=== PATIENT | female | born 1965 | race African-American/Black ===

== ENCOUNTER 2016-05-31 10:54 | Day surgery (SDC) ==
[2016-05-29 14:06] LABS: MANUAL DIFF NEEDED? NO
[2016-05-29 14:09] LABS: BASO% 0.3 % (0.0-0.8); EOS# 0.14 X1000 (0.0-0.7); HEMATOCRIT 41.9 % (37.0-47.0); HEMOGLOBIN 13.9 g/dL (12.0-16.0); LYMPH# 2.42 X1000 (1.2-3.4); LYMPH% 35.2 % (20.5-51.1); MCH 27.5 PG (27-31); MCHC 33.2 g/dL (33-37); MONO# 0.51 X1000 (0.11-0.59); MONO% 7.4 % (1.7-9.3); MPV 10.4 FL (7.4-10.4); NEUT% 55.1 % (42.2-75.2); PLT 213 X1000 (130-400); RBC 5.05 XMIL (4.2-5.4)
[2016-05-29 14:34] LABS: AGAP 15; BUN 9 mg/dL (8-22); CALCIUM 9.2 mg/dL (8.8-10.2); CHLORIDE 93 mmol/L (98-107); COSMO 270; POTASSIUM 3.7 mmol/L (3.5-5.1); SODIUM 133 mmol/L (136-145); TCO2 25 mmol/L (25-35)
--- NOTE | 2016-05-29 16:14 | EKG Report ---
Test Performed on : 05/29/2016 1:57:51 PM Test Reason : PAT Blood Pressure : / mmHG Vent. Rate : 084 BPM Atrial Rate : 084 BPM P-R Int : 158 ms QRS Dur : 092 ms QT Int : 394 ms P-R-T Axes : 063 031 033 degrees QTc Int : 465 ms Normal sinus rhythm. Right atrial enlargement Borderline ECG When compared with ECG of 07-DEC-2015 14:19, Nonspecific T wave abnormality, improved in Inferior leads Nonspecific T wave abnormality no longer evident in Anterolateral leads Confirmed by Ernesto Jones MD ([id number]) on 05/31/2016 9:10:06 PM
[2016-05-31] MEDS ORDERED: REGLAN ONE (11:40)
[2016-05-31] MEDS ORDERED: PEPCID ONE (11:40)
[2016-05-31] MEDS ORDERED: KEFZOL 2 GM/D5W 50 ML ONE (11:41)
[2016-05-31] MEDS ORDERED: LR 1,000 ML ONE ×2 (11:41→16:36)
[2016-05-31] MEDS ORDERED: VALIUM ONE (11:41)
[2016-05-31] MEDS: DILAUDID ONE ×4 (16:10→17:00)
[2016-05-31] MEDS ORDERED: ZOFRAN IV PRN (16:45)
[2016-05-31] MEDS ORDERED: FLEXERIL PO PRN (16:45)
[2016-05-31] MEDS: NORCO-10 PO PRN ×2 (17:44→21:54)
--- NOTE | 2016-05-31 18:12 | OPERATIVE NOTE ---
PROCEDURE DATE: 05/31/2016 PREOPERATIVE DIAGNOSIS: Recurrent chronic breast abscesses. POSTOPERATIVE DIAGNOSIS: Recurrent chronic breast abscess. PROCEDURE PERFORMED: Right total mastectomy. COMPLICATIONS: None. ESTIMATED BLOOD LOSS: 50 mL. DRAINS: Gildardo. ANESTHESIA: General. OPERATIVE INDICATION: This is a 51-year-old female who has had recurrent bilateral breast abscesses for greater than 2 years. She has required multiple surgical interventions, including multiple general anesthesia, numerable counts of IV antibiotics and has failed all these therapies. She recently underwent left-sided mastectomy for treatment of this disease and would like to proceed with right total mastectomy. OPERATIVE NOTE: Risks, benefits, alternatives discussed with the patient, she consented to the procedure. She was seen in the preoperative area. Surgery to be performed was confirmed. The surgical site was marked. She was taken to the operating room, placed in supine position. General anesthesia was induced without complication. Preincisional antibiotics were administered. Her right chest was prepped with chlorhexidine solution and draped in the usual fashion. A time- out was performed. We mapped out an elliptical incision, starting medially just lateral to the sternum, progressing laterally around the breast. We made this incision with a 10 blade and using electrocautery we went down through the subcutaneous tissue to the breast tissue. We 1st started with a cephalad flap and we placed penetrating towel clamps on the superior skin flap, elevated this and with gentle downward retraction, we entered the avascular plane between the breasts. She did, however, have very large mammary veins that required multiple ligations with silk suture. We did this over the superior and inferior flap. However, we were able to take the breast at the level of clavicle medially all the way laterally. We then turned our attention to the inferior skin flap. In a similar fashion, took this down to the level of the rectus muscle and then down to the level of the chest wall. We elected to leave the muscle fascia as this was for a nononcologic resection to decrease her likelihood of having a bleeding complication. We did this and removed the breast off the chest wall. We irrigated the wound, obtained hemostasis, and this was confirmed. Placed a DRU drain, brought it out laterally secured with 2-0 nylon suture. Then closed the deep dermis and obliterated the space down to the anterior chest wall fascia, anterior pectoralis fascia with interrupted 2-0 Vicryl sutures. After this, we closed the skin with jerson, applied a Xeroform and fluff dressing with an Kurtis wrap. She tolerated all this well. She was awoken and transferred to PACU in good condition. I spoke with the family. We will plan to admit her tonight.
[2016-05-31] MEDS ORDERED: DIPRIVAN 1% ONE (18:59)
[2016-05-31] MEDS ORDERED: FENTANYL ONE (18:59)
[2016-05-31] MEDS: COLACE PO SCH (20:57)
[2016-05-31] MEDS: MORPHINE IV PRN (20:57)
[2016-05-31] MEDS: LR 1,000 ML IV SCH (21:56)
[2016-05-31] MEDS: PERIDEX MT SCH (22:18)
[2016-06-01] MEDS: MORPHINE IV PRN ×3 (00:06→06:53)
[2016-06-01] MEDS: NORCO-10 PO PRN ×2 (02:11→06:12)
[2016-06-01] MEDS: LR 1,000 ML IV SCH (06:12)
[2016-06-01 08:30] VITALS: BP 170/95
[2016-06-01] MEDS ORDERED: NORVASC PO SCH (09:00)
[2016-06-01] MEDS ORDERED: EFFEXOR PO SCH (09:00)
[2016-06-01] MEDS: COLACE PO SCH (09:15)
[2016-06-01] MEDS: PERIDEX MT SCH (09:16)
[2016-06-01] MEDS ORDERED: DECADRON ONE (09:24)
[2016-06-01] MEDS ORDERED: XYLOCAINE-MPF 2% ONE (09:24)
[2016-06-01] MEDS ORDERED: ZOFRAN ONE (09:24)
[2016-06-01] MEDS ORDERED: LR 1,000 ML ONE (09:24)
[2016-06-01] MEDS ORDERED: ROBINUL ONE (09:24)
--- NOTE | 2016-06-01 18:51 | DISCHARGE SUMMARY ---
ADMISSION DATE: 05/31/2016 DISCHARGE DATE: 06/01/2016 HISTORY OF PRESENT ILLNESS: This is a 51-year-old female with recurrent bilateral breast infections. She underwent a left mastectomy a couple of weeks ago and had active infection in her right breast. As such, we did not perform a right mastectomy at that time. Given her ongoing infections and multiple operations, a course with antibiotics, and persistence of her symptoms, right mastectomy was indicated and requested by the patient. HOSPITAL COURSE: She was seen in the preoperative area and cleared for above procedure. For details, please see dictated operative note. Postoperatively she did fine. She was admitted to the floor for drain care, pain control. This was well controlled. On the day of her discharge, she was afebrile, no tachycardia, drains were thin, and the wound was flat with no evidence of hematoma. She was felt safe for discharge home at this time. Her preoperative diagnosis was recurrent bilateral breast abscess. Postoperative was same. Procedure performed was right total mastectomy. DISPOSITION: Home to self care. DISCHARGE INSTRUCTIONS: She was given detailed drain care instructions. She knows as she is familiar with this as she had them before. She will call my office when the output is less than 30 mL and we will remove the drain. She also knows what to look for as far as hematoma or wound infection. I gave her a prescription for Percocet and Colace. She can continue taking her other home medicines. DISCHARGE CONDITION: Good. ACTIVITY: Avoid heavy lifting until her followup appointment.
== END 2016-06-01 09:48 | disposition home or self-care (01) ==
LOC: OPS 10:54 → UNDOADMOB 16:22 → 4N 16:22 → OPS 06-01 09:48 → UNDODISOB 06-01 09:48
PROVIDERS: ATTEND Surgery
DX: N61.1 Abscess of the breast and nipple (principal); F17.210 Nicotine dependence, cigarettes, uncomplicated
CPT/HCPCS: 80048; 85025; 88307; 93005; 93010; 94799; J0690; J1100; J1170; J2270; J2405; J3010; J7120

== ENCOUNTER 2016-09-19 16:10 | Inpatient (IN) ==
[2016-09-19 16:33] LABS: URINE CULTURE PL NEEDED? NO
--- NOTE | 2016-09-19 17:02 | Diag Imaging Result Doc PS360 ---
EXAM: FLAT/UPRIGHT ABD/1 VIEW CHEST HISTORY: abd pain TECHNIQUE: Flat and upright abdomen with chest three views COMMENT: The bowel gas pattern is unremarkable. There is no evidence organomegaly or mass. There are vascular calcifications and phleboliths. There is degenerative facet disease at L4-5 and L5-S1. CHEST: The appearance of the chest has not changed significantly since 08/01/2016. IMPRESSION: No evidence of acute disease. Electronically signed by Kiran Ortega 09/19/2016 5:00 PM
[2016-09-19 17:04] LABS: BILIRUBIN URINE NEGATIVE (NEGATIVE); BLOOD URINE 1+ (NEGATIVE); CLARITY CLEAR (CLEAR); COLOR YELLOW; GLUCOSE URINE NEGATIVE (NEGATIVE); LEUKOCYTES URINE NEGATIVE (NEGATIVE); NITRITE URINE NEGATIVE (NEGATIVE); PH URINE 6.5; PROTEIN URINE NEGATIVE (NEGATIVE); UROBILINOGEN URINE NORMAL
[2016-09-19 17:29] LABS: URINE CAST NONE SEEN /LPF; URINE CRYSTAL NONE SEEN /HPF; URINE EPITHELIAL CELLS >10 /HPF (<10); URINE RBC <10 /HPF (<10); URINE SOURCE CLEAN CATCH; URINE WBC <10 /HPF (<10)
[2016-09-19 18:03] LABS: MANUAL DIFF NEEDED? NO
[2016-09-19 18:12] LABS: BASO% 0.3 % (0.0-0.8); EOS# 0.18 X1000 (0.0-0.7); EOS% 2.3 % (0.0-10.0); HEMATOCRIT 42.9 % (37.0-47.0); HEMOGLOBIN 14.5 g/dL (12.0-16.0); IMM GRAN# 0.01 X1000 (0.0-0.04); IMM GRAN% 0.1 % (0.0-0.5); LYMPH# 2.67 X1000 (1.2-3.4); LYMPH% 34.1 % (20.5-51.1); MCH 29.4 PG (27-31); MCHC 33.8 g/dL (33-37); MONO# 0.54 X1000 (0.11-0.59); MONO% 6.9 % (1.7-9.3); MPV 10.9 FL (7.4-10.4); NEUT% 56.3 % (42.2-75.2); PLT 193 X1000 (130-400); RBC 4.93 XMIL (4.2-5.4)
[2016-09-19] MEDS ORDERED: NS 1,000 ML IV PRN (18:18)
[2016-09-19] MEDS ORDERED: ZOFRAN IV ONE (18:19)
[2016-09-19] MEDS ORDERED: DEMEROL IV ONE (18:19)
[2016-09-19 18:43] LABS: AGAP 13; ALBUMIN 3.9 g/dL (3.5-5.0); ALKALINE PHOSPHATASE 119 U/L (32-104); AMYLASE 108 U/L (20-200); BUN 6 mg/dL (8-22); CALCIUM 9.1 mg/dL (8.8-10.2); CHLORIDE 96 mmol/L (98-107); COSMO 274; GOT 38 U/L (10-30); GPT 31 U/L (10-36); LIPASE 344 U/L (13-60); POTASSIUM 3.7 mmol/L (3.5-5.1); SODIUM 135 mmol/L (136-145); TCO2 26 mmol/L (25-35); TOTAL PROTEIN 7.3 g/dL (6.3-8.3)
[2016-09-19 18:57] LABS: HEMOGLOBIN A1C 6.8 % (4.8-6.0)
--- NOTE | 2016-09-19 19:58 | Diag Imaging Result Doc PS360 ---
EXAM: ABDOMEN W/CONTRAST HISTORY: RUQ ABD PAIN TECHNIQUE: CT of the abdomen and pelvis with intravenous and oral contrast COMMENT: There is no evidence of acute disease in the visualized portion of the chest. The liver is hypodense consistent with fatty change and there are granulomata in the liver and spleen. The surface of the liver is somewhat lobulated suggesting the possibility of cirrhosis. There is no evidence of cholelithiasis. There is a phrygian cap in the gallbladder. There is a large cyst arising from the upper pole of the right kidney measuring in excess of 9.3 cm. The adrenal glands and spleen are not enlarged. There is minimal edema around and within the head of the pancreas. There is an 18 mm periportal node. Otherwise there is no evidence of significant adenopathy. There is no evidence of bowel obstruction. The appendix is normal in appearance. IMPRESSION: Mild pancreatitis. Hepatic steatosis and possible cirrhosis. Electronically signed by Kiran Ortega 09/19/2016 7:56 PM
[2016-09-19] MEDS ORDERED: ZOFRAN IV PRN (20:11)
[2016-09-19] MEDS ORDERED: NS 1,000 ML IV ONE (20:11)
--- NOTE | 2016-09-19 20:16 | PROVIDER DOCUMENTATION ---
This chart was entered by Jacque Nova Scribe, acting as scribe for Immanuel Higuera MD. HPI-Abdominal Pain/GI Problem - General Chief Complaint: Abdominal Pain Stated Complaint: ABD/EPIGASTRIC PAIN Time Seen by Provider: 09/19/16 18:09 Source: patient Allergies/Adverse Reactions: Patient Allergies Allergy/AdvReac Type Severity Reaction Status Date / Time No Known Allergies Allergy Verified 05/29/16 13:34 Home Medications: Home Medication List Medication Instructions Recorded Confirmed Last Taken Type Amlodipine [Norvasc] 10 mg PO DAILY 05/11/13 05/31/16 05/30/16 08:00 History Cyclobenzaprine [Flexeril] 10 mg PO PRN PRN 05/06/15 05/29/16 04/18/16 10:00 History Tizanidine HCl [Zanaflex] 2 mg PO DAILY 12/07/15 05/31/16 05/30/16 History Docusate Sodium [Colace] 100 mg PO BID #60 capsule 01/17/16 05/31/16 05/30/16 Rx Oxycodone HCl/Acetaminophen 1 each PO Q6H PRN PRN #30 tablet 01/17/16 05/31/16 05/30/16 Rx [Percocet 10-325 mg Tablet] Hydrochlorothiazide 25 mg PO DAILY 04/20/16 05/31/16 05/30/16 08:00 History Venlafaxine [Effexor] 50 mg PO DAILY 05/31/16 05/31/16 05/30/16 08:00 History Azithromycin [Zithromax Z-Porfirio] 250 mg PO DIRECTED #1 pkg 08/01/16 Unknown Rx Benzonatate [Tessalon Perle] 200 mg PO TID #30 capsule 08/01/16 Unknown Rx Methylprednisolone [Medrol Dosepak] 4 mg PO DIRECTED #1 package 08/01/16 Unknown Rx - History of Present Illness-ABD Nature of Presenting Problems: 51 Y/O F presents to ED with ABD pain. p states 2 weeks of ABD pain at first intermittent but now has become constant. Pt states that she took Miralax believing it was gas but states that it helped a little, but ABD pain has returned. Pt states that she has had Thick stool. Eating worsens ABD pain. Pt states that she took 6 Zantax throughout 3 days. Pt states its a burning feeling that occurs when eating, and when the pain comes on it is a frank pain. Abdominal Pain Onset Location: reports: epigastric Pain Radiation: reports: RUQ, flank Quality of Pain: reports: aching Severity in ED: reports: moderate, severe Onset/Duration: reports: other (2 weeks) Timing: reports: still present Associated Symptoms: reports: diarrhea. denies: fatigue, fever/chills, shortness of breath, syncope, vomiting Last BM: this morning Review of Systems - Adult - REVIEW OF SYSTEMS - ADULT Constitutional: denies: chills, fever Eyes: reports: no symptoms reported Ears, Nose, Mouth & Throat: reports: no symptoms reported Cardiovascular: reports: no symptoms reported Respiratory: reports: no symptoms reported Gastrointestinal: reports: abdominal pain, diarrhea. denies: nausea, vomiting Genitourinary: reports: no symptoms reported Musculoskeletal: reports: no symptoms reported Integumentary: reports: no symptoms reported Neurological: reports: no symptoms reported Psychiatric: reports: no symptoms reported Endocrine: reports: no symptoms reported Hematologic/Lymphatic: reports: no symptoms reported Allergic/Immunologic: reports: no symptoms reported All Other Systems: Reviewed and Negative Past History - Adult - PAST MEDICAL HISTORY-ADULT Review of Records: reports: Old Records Reviewed, Nursing Assessment Review, Medications Reviewed, Social history reviewed & non-contributory. Major Childhood Illnesses: reports: denies history Cardiovascular: reports: HTN Respiratory: reports: denies history Gastrointestinal: reports: denies history Obstetrical/Gynecological: reports: denies history Genitourinary: reports: denies history Musculoskeletal: reports: denies history Neurological: reports: denies history Psychiatric: reports: bipolar Endocrine/Immune: reports: denies history Other Conditions: reports: denies history - PRIOR SURGERIES/PROCEDURES Surgical/Procedure History: reports: back/neck (neck sx) - IMMUNIZATION STATUS Childhood Immunizations: See Nurse Assessment Flu Vaccine: See Nurse Assessment - FAMILY HISTORY Family History: reviewed, not pertinent Physical Exam-General - CONSTITUTIONAL General Appearance: alert, no apparent distress, obese - EYES Eyes: PERRL/EOMI, pink conjunctivae - HEAD, EARS, NOSE, MOUTH & THROAT HENMT: normocephalic/atraumatic, moist mucous membranes, normal ENT inspection, TMs normal, pharynx normal - NECK Neck: full range of motion, supple, normal inspection - RESPIRATORY Respiratory: lungs clear, normal breath sounds - CARDIOVASCULAR Cardiovascular: normal peripheral pulses, regular rate, rhythm - GASTROINTESTINAL (ABDOMEN) Abdominal Exam: distended, tenderness (epigastric and RUQ) - LYMPHATIC Lymphatic: no adenopathy - MUSCULOSKELETAL Back Exam: normal inspection Extremity: normal range of motion, non-tender - SKIN Integumentary: normal color, normal turgor - NEUROLOGIC Neurologic: grossly normal - PSYCHIATRIC Psych/Mental Status: normal mood/affect, normal thought content, normal thought process, oriented x 3 Progress - PLAN OF CARE/RESULTS Progress/Plan/Lab Results: Vital Signs - 8 hr 09/19/16 16:19 Temperature 98 F Pulse Rate 86 Respiratory Rate 18 Blood Pressure 152/110 O2 Sat by Pulse Oximetry 97 Laboratory Results - last 24 hr 09/19/16 16:20 Urine Source CLEAN CATCH Urine Color YELLOW Urine Clarity CLEAR Urine pH 6.5 Ur Specific [place] 1.000 Urine Protein NEGATIVE Urine Ketones NEGATIVE Urine Blood 1+ A Urine Nitrite NEGATIVE Urine Bilirubin NEGATIVE Urine Urobilinogen NORMAL Urine Microscopic RBC <10 Urine WBC NEGATIVE Urine Microscopic WBC <10 Ur Epithelial Cells >10 A Urine Crystals NONE SEEN Urine Bacteria NEGATIVE Urine Casts NONE SEEN Urine Yeast NONE SEEN Urine Glucose NEGATIVE Orders Category Date Time Status FLAT/UPRIGHT ABD/1 VIEW CHEST [RAD] Stat Exams 09/19/16 16:23 Completed AMYLASE [CHEM] Stat Lab 09/19/16 17:52 Received CBC WITH DIFF [HEME] Stat Lab 09/19/16 17:52 Results COMPREHENSIVE METABOLIC PANEL [CHEM] Stat Lab 09/19/16 17:52 Received LIPASE [CHEM] Stat Lab 09/19/16 17:[address] W/POSS RFLX CULT [URINALYSIS] Stat Lab 09/19/16 16:20 Completed Result Diagrams: 09/19/16 17:52 09/19/16 17:52 - XRAY 1 XRAY Study: Abdomen Impression: Normal XRAY Interpretation: bowel gas pattern unremarkable 2 XRAY Study: Chest Impression: Normal Comparison with other Films: no changes (since 08/01/16) XRAY Interpretation: NAD - CT/MRI 1 CT Study: Abdomen Impression: Abnormal CT Results: Mild pancreatitits. Hepatic steatosis and possible cirrhosis - CONSULTS/PCP/HOSPITALIST Notification #1 *Consult/PCP/Hospitalist*: Time Discussed: 20:08 Reason/Comments: Admit Consult Disposition: Admit (Admit Accepted) Departure - Departure Date of Disposition Decision: 09/19/16 Time of Disposition Decision: 20:14 DIAGNOSIS: Steatosis of liver, Obesity (BMI 30.0-34.9) Pancreatitis Qualifiers: Chronicity: acute Pancreatitis type: idiopathic Acute pancreatitis complication : no infection or necrosis Qualified Code(s): K85.00 - Idiopathic acute pancreatitis without necrosis or infection Disposition: ADMITTED INPATIENT 09 Certified Medical Emergency: Emergent Condition: Fair Referrals and Follow-Ups: None,PCP [Primary Care Provider] - - Critical Care Note This patient required my direct & personal management of CC.: No This chart was documented by the indicated scribe, (Jacque Nova Scribe) and accurately reflects the services I performed and decisions made by me, Immanuel Higuera MD, as attested by the provider's signature.
[2016-09-19] MEDS ORDERED: MORPHINE IV ONE (22:12)
[2016-09-19] MEDS ORDERED: SODIUM CHLORIDE 0.9% INJ ONE (22:12)
[2016-09-19] MEDS ORDERED: PHENERGAN IV ONE (22:12)
[2016-09-20] MEDS: MORPHINE IV PRN ×7 (05:32→22:50)
[2016-09-20 06:31] LABS: AGAP 12; ALBUMIN 3.7 g/dL (3.5-5.0); ALKALINE PHOSPHATASE 112 U/L (32-104); BUN 8 mg/dL (8-22); CALCIUM 8.9 mg/dL (8.8-10.2); CHLORIDE 98 mmol/L (98-107); COSMO 273; GOT 30 U/L (10-30); GPT 28 U/L (10-36); POTASSIUM 3.6 mmol/L (3.5-5.1); SODIUM 136 mmol/L (136-145); TCO2 26 mmol/L (25-35); TOTAL PROTEIN 7.6 g/dL (6.3-8.3)
--- NOTE | 2016-09-20 13:10 | HISTORY AND PHYSICAL ---
CHIEF COMPLAINT: Right upper quadrant epigastric pain. HISTORY OF PRESENT ILLNESS: This is a 51-year-old female with a prior history of hypertension, bipolar disorder, who presented to the emergency room complaining of epigastric pain and nausea. This has been present for 2 weeks. She does describe this as a burning-type pain in the epigastric area that she feels like is frank or having spasms at times. Food exacerbates and it spontaneously relieves. She denied any vomiting, diarrhea, constipation, black or bloody vomitus, black or bloody stool. She was found to have a lipase of 344. CT of the abdomen revealed mild pancreatitis with hepatic steatosis and possible cirrhosis. She was given IV fluids as well as Phenergan and Zofran for nausea and admitted for further evaluation and treatment. PAST MEDICAL HISTORY: Hypertension, bipolar disorder. Tobacco. Chronic pain currently at a Pain Clinic. PAST SURGICAL HISTORY: Bilateral mastectomy for recurrent infections. SOCIAL HISTORY: She smokes daily and she drinks alcohol daily, 4 beers at least. ALLERGIES: No known drug allergies. HOME MEDICATIONS: Restoril 15 mg at bedtime, Klonopin 0.5 b.i.d., hydrochlorothiazide 25 mg daily. Norvasc 10 mg daily. Oxycodone 10 t.i.d. p.r.n. and Effexor XR 150 at bedtime. REVIEW OF SYSTEMS: A 14-point review of systems is discussed with the patient with pertinent positives stated in the HPI. She denied chest pain, palpitations, dizziness, syncope, cough, fever, chills, PND, orthopnea, vomiting, diarrhea, constipation, black or bloody vomitus black or bloody stools, hematuria, dysuria, frequency, urgency. PHYSICAL EXAMINATION: GENERAL: This is a 51-year-old female who is sitting in the bed, in no distress. VITAL SIGNS: Blood pressure is 123/73 with a heart rate of 76, respirations are 16, temperature is 98.4 with room air saturations of 95%. HEENT: Head is normocephalic, atraumatic. Pupils equal, round, react to light. EOMs are intact. Sclerae are anicteric. Mucous membranes are moist. NECK: Supple with trachea midline. CARDIOVASCULAR: Regular rate and rhythm. S1, S2 appreciated. PULMONARY: Breath sounds are clear. No increased work of breathing noted. Chest does rise and fall symmetrically with respiration. GASTROINTESTINAL: Abdomen is soft. Tender in the epigastric region. Nondistended with bowel sounds in all 4 quadrants. BACK: No CVAT. No spine tenderness. MUSCULOSKELETAL: Good range of motion of joints. NEUROLOGIC: She is alert and oriented x3 with cranial nerves 2-12 grossly intact. EXTREMITIES: No clubbing, cyanosis, or edema. Calves are nontender. Pulses are palpable x4. DIAGNOSTICS: WBC is 7.84 with a hemoglobin 14.5, hematocrit 42.9 and platelets of 193. Sodium is 136, potassium 3.6, BUN 8, creatinine 0.9. Glucose ranging 116-140. Hemoglobin A1c is 6.8, with a lipase of 344. CT scan of the abdomen and pelvis reveals mild pancreatitis. Cirrhosis and hepatic steatosis. Abdominal x-ray reveals no acute disease. Chest x-ray, with no change since 08/01/2016. ASSESSMENT AND PLAN: 1. Pancreatitis. Patient will remain n.p.o. Will give IV hydration with pain and nausea control. We will trend her lipase. 2. Steatosis of liver. Aware. 3. Obesity. 4. Hypertension. We will identify her home medications and continue as appropriate. 5. Bipolar disorder. We will continue her home medications and reorder as appropriate. 6. Tobacco abuse. We will add a nicotine patch if she needs it. 7. Alcohol use daily. We will start Librium 25 mg b.i.d., monitor for withdrawal and delirium tremens. 8. We will continue to trend labs. Further treatments pending hospital course. Dictated by CYNTHIA South for Fabrice Torres MD cc: CYNTHIA South MD
[2016-09-20] MEDS: LIBRIUM PO SCH (13:50)
[2016-09-20] MEDS: RESTORIL PO SCH (21:36)
[2016-09-20] MEDS: KLONOPIN PO SCH (21:36)
[2016-09-20] MEDS: EFFEXOR XR PO SCH (21:36)
[2016-09-21] MEDS: LIBRIUM PO SCH ×3 (00:11→23:44)
[2016-09-21] MEDS: MORPHINE IV PRN ×3 (01:13→05:37)
[2016-09-21 05:49] LABS: MCH 28.7 PG (27-31); MCHC 32.6 g/dL (33-37); MCV 88.1 FL (81-99); MPV 11.6 FL (7.4-10.4); RBC 4.88 XMIL (4.2-5.4)
[2016-09-21 06:21] LABS: AGAP 11; ALBUMIN 3.8 g/dL (3.5-5.0); ALKALINE PHOSPHATASE 111 U/L (32-104); BUN 9 mg/dL (8-22); CALCIUM 8.7 mg/dL (8.8-10.2); CHLORIDE 96 mmol/L (98-107); COSMO 268; GOT 33 U/L (10-30); GPT 25 U/L (10-36); LIPASE 151 U/L (13-60); POTASSIUM 3.4 mmol/L (3.5-5.1); SODIUM 134 mmol/L (136-145); TCO2 26 mmol/L (25-35); TOTAL PROTEIN 7.5 g/dL (6.3-8.3)
[2016-09-21] MEDS ORDERED: NORCO-10 PO PRN (06:39)
[2016-09-21] MEDS: HYDROCHLOROTHIAZIDE PO SCH (09:33)
[2016-09-21] MEDS: COLACE PO SCH ×2 (09:33→20:37)
[2016-09-21] MEDS: NORVASC PO SCH (09:33)
[2016-09-21] MEDS: ZOSYN 3.375 GM/NS 3.375 GM/50 ML IVPB IV SCH ×3 (09:33→20:38)
[2016-09-21] MEDS: KLONOPIN PO SCH ×2 (09:33→20:37)
[2016-09-21] MEDS: PERCOCET-10 PO PRN ×2 (13:13→20:38)
--- NOTE | 2016-09-21 14:37 | PROGRESS NOTE ---
DATE: 09/21/2016 SUBJECTIVE: The patient is feeling better having no nausea. She did tolerate a clear liquid breakfast without abdominal pain or nausea. She denies any fever or chills. OBJECTIVE: Vital Signs: Blood pressure is 123/76, heart rate of 75, respirations are 16, temperature is 98 degrees with oxygen saturations of 93%-98% on room air. Cardiovascular: Regular rate and rhythm. S1, S2 appreciated. Pulmonary: Breath sounds are clear. No increased work of breathing noted. Gastrointestinal: Soft. Tender in the epigastric area although it is less than yesterday with bowel sounds in all 4 quadrants. Musculoskeletal: Good range of motion of joints. Neurologic: She is alert and oriented x3. LABORATORY DATA: WBC is 6.39. Sodium is 134, potassium 3.4. BUN is 9, creatinine 0.8. Lipase is down to 151. ASSESSMENT AND PLAN: 1. Pancreatitis. We will continue with IV hydration. We will trend amylase and lipase and advance diet. 2. Steatosis of liver, aware. 3. Obesity, aware. 4. Hypertension. Blood pressures are running in the 104-120s/70 range. We will continue with hydrochlorothiazide as well as Norvasc. 5. Bipolar disorder. We will continue her home medications. 6. Daily alcohol use. We will continue Librium 25 mg b.i.d. So far, she has had no signs or symptoms of withdrawal or delirium tremens. 7. Tobacco abuse, aware. Dictated by CYNTHIA South for Fabrice Torres MD cc: CYNTHIA South MD
[2016-09-21] MEDS: RESTORIL PO SCH (20:37)
[2016-09-21] MEDS: EFFEXOR XR PO SCH (20:37)
[2016-09-21] MEDS ORDERED: RESTORIL PO SCH (21:00)
[2016-09-22] MEDS: ZOSYN 3.375 GM/NS 3.375 GM/50 ML IVPB IV SCH ×3 (03:17→15:07)
[2016-09-22 06:18] VITALS: BP 152/93
[2016-09-22 06:46] LABS: ALBUMIN 3.8 g/dL (3.5-5.0); POTASSIUM 4.1 mmol/L (3.5-5.1); TOTAL BILIRUBIN 0.3 mg/dL (0.20-1.00); TOTAL PROTEIN 7.6 g/dL (6.3-8.3)
[2016-09-22] MEDS: HYDROCHLOROTHIAZIDE PO SCH (09:19)
[2016-09-22] MEDS: COLACE PO SCH (09:19)
[2016-09-22] MEDS: KLONOPIN PO SCH (09:19)
[2016-09-22] MEDS: NORVASC PO SCH (09:19)
[2016-09-22] MEDS: PERCOCET-10 PO PRN ×2 (09:23→16:05)
[2016-09-22] MEDS: LIBRIUM PO SCH (12:00)
--- NOTE | 2016-09-22 19:30 | DISCHARGE SUMMARY ---
ADMISSION DATE: 09/19/2016 DISCHARGE DATE: 09/22/2016 DIAGNOSES: 1. Pancreatitis. 2. Steatosis of liver. Aware. 3. Obesity. 4. Hypertension. 5. Bipolar disorder. 6. Daily alcohol use. 7. Tobacco abuse. DIAGNOSTICS: 09/19/2016: Abdominal x-ray revealed no evidence of acute disease. 09/19/2016: CT of the abdomen with mild pancreatitis, hepatic steatosis and possible cirrhosis. HOSPITAL COURSE: Ms. Bah presented to the emergency room complaining of abdominal pain, right upper quadrant epigastric pain. She denied any vomiting, diarrhea or constipation. She stated this had been going on for 2 weeks. It had been waxing and waning. She was found to have pancreatitis with CT revealing mild pancreatitis, amylase of 108 and lipase of 344. She remained n.p.o. with IV hydration and nausea medication. As lipase decreased and her nausea subsided, we did start her on clear liquids and advance her diet. She tolerated a soft diet at lunch today with no vomiting with very little abdominal pain. No nausea. She stated the pain was just a slight cramping. She remained afebrile. We did trend her electrolytes and supplemented her potassium. She did have an A1c of 6.8 with blood sugars that ranged 107 to 150s. Thankfully the symptoms did subside, she has improved and she does feel that she is ready to go home. PHYSICAL EXAMINATION: Cardiovascular: Regular rate and rhythm. S1 and S2 appreciated. Pulmonary: Breath sounds are clear with no increased work of breathing noted . Gastrointestinal: Abdomen is soft, nontender, nondistended with bowel sounds in all 4 quadrants. Extremities: No clubbing, cyanosis, or edema. Calves are nontender. Pulses are palpable x4. DISCHARGE MEDICATIONS: 1. Restoril 15 mg at bedtime. 2. Klonopin 0.5 p.o. b.i.d. 3. Hydrochlorothiazide 25 daily. 4. Colace 100 b.i.d. 5. Norvasc 10 daily. 6. Percocet 10/325, 1 t.i.d. p.r.n. 7. Effexor 150 mg at bedtime. FOLLOWUP: She needs to follow up with her primary care physician in 1-2 weeks. If she does not have one, she will be given the numbers to the Physician Referral Line as well as the [facility]. She has also been instructed to return to the emergency room for temperature greater than 101.5; return of pain, nausea, vomiting, diarrhea, constipation or any questions or concerns that she may have. She is being discharged home in stable condition with family members. TIME SPENT: This is a greater than 30 minute discharge. Dictated by CYNTHIA South for Fabrice Torres MD cc: CYNTHIA South MD
== END 2016-09-22 17:36 | disposition home or self-care (01) ==
LOC: P.ED 16:10 → P.MEDSURG 21:15
PROVIDERS: ATTEND Family Medicine

== ENCOUNTER 2016-10-06 02:04 | Inpatient (IN) ==
[2016-10-06] MEDS ORDERED: ZOFRAN IV ONE (02:19)
[2016-10-06] MEDS ORDERED: NS 1,000 ML IV ONE ×3 (02:19→03:04)
[2016-10-06] MEDS ORDERED: OFIRMEV 1000 MG/ISOTONIC SOLN 1,000 MG/100 ML BOTTLE IV ONE (02:20)
[2016-10-06] MEDS ORDERED: DILAUDID IV ONE (02:26)
[2016-10-06 02:36] LABS: MANUAL DIFF NEEDED? NO
[2016-10-06 02:38] LABS: BASO% 0.2 % (0.0-0.8); EOS# 0.17 X1000 (0.0-0.7); EOS% 1.8 % (0.0-10.0); HEMATOCRIT 41.7 % (37.0-47.0); HEMOGLOBIN 14.5 g/dL (12.0-16.0); IMM GRAN# 0.01 X1000 (0.0-0.04); IMM GRAN% 0.1 % (0.0-0.5); LYMPH# 3.19 X1000 (1.2-3.4); LYMPH% 33.8 % (20.5-51.1); MCH 29.4 PG (27-31); MCHC 34.8 g/dL (33-37); MCV 84.4 FL (81-99); MONO# 0.78 X1000 (0.11-0.59); MONO% 8.3 % (1.7-9.3); MPV 11.3 FL (7.4-10.4); NEUT% 55.8 % (42.2-75.2); PLT 225 X1000 (130-400); RBC 4.94 XMIL (4.2-5.4)
[2016-10-06 02:58] LABS: AGAP 12; ALKALINE PHOSPHATASE 94 U/L (32-104); BUN 9 mg/dL (8-22); CALCIUM 10.3 mg/dL (8.8-10.2); CHLORIDE 95 mmol/L (98-107); COSMO 267; GOT 22 U/L (10-30); GPT 17 U/L (10-36); LIPASE 278 U/L (13-60); POTASSIUM 3.3 mmol/L (3.5-5.1); SODIUM 133 mmol/L (136-145); TCO2 25 mmol/L (25-35); TOTAL PROTEIN 8.1 g/dL (6.3-8.3)
[2016-10-06] MEDS ORDERED: TORADOL IV ONE (03:01)
[2016-10-06] MEDS: DILAUDID IV ONE ×2 (03:01→03:49)
[2016-10-06] MEDS ORDERED: ZOFRAN IV PRN (03:04)
--- NOTE | 2016-10-06 03:07 | PROVIDER DOCUMENTATION ---
This chart was entered by Emily Farnsworth Scribe, acting as scribe for Fadi Hernandez MD. HPI-Abdominal Pain/GI Problem - General Chief Complaint: Abdominal Pain Stated Complaint: ABD PAIN Time Seen by Provider: 10/06/16 02:17 Source: patient Allergies/Adverse Reactions: Patient Allergies Allergy/AdvReac Type Severity Reaction Status Date / Time No Known Allergies Allergy Verified 05/29/16 13:34 Home Medications: Home Medication List Medication Instructions Recorded Confirmed Last Taken Type Amlodipine [Norvasc] 10 mg PO DAILY 05/11/13 09/20/16 09/18/16 History Docusate Sodium [Colace] 100 mg PO BID #60 capsule 01/17/16 09/20/16 09/18/16 Rx Hydrochlorothiazide 25 mg PO DAILY 04/20/16 09/20/16 09/18/16 History Clonazepam 0.5 mg PO BID 09/20/16 09/20/16 09/18/16 History Oxycodone HCl/Acetaminophen 1 each PO TID PRN PRN 09/20/16 09/20/16 09/18/16 History [Percocet 10-325 mg Tablet] Temazepam 15 mg PO QHS 09/20/16 09/20/16 09/18/16 History Venlafaxine HCl [Effexor Xr] 150 mg PO QHS 09/20/16 09/20/16 09/18/16 History - History of Present Illness-ABD Nature of Presenting Problems: 51 year old F presents to the ED with a cc of RUQ and epigastric ABD pain with an onset of 3 days ago. Pt was just released 1 week ago from the hospital for the same. PT states that she had some vomiting 2 nights ago and diarrhea yesterday. Abdominal Pain Onset Location: reports: RUQ, epigastric Pain Radiation: reports: back Quality of Pain: reports: aching Severity in ED: reports: moderate Onset/Duration: reports: 3 days ago Timing: reports: still present Associated Symptoms: reports: diarrhea, nausea, vomiting Bruising or Bleeding Gums?: No Similar Symptoms Previously?: Yes Recently seen or treated by another doctor?: Yes Review of Systems - Adult - REVIEW OF SYSTEMS - ADULT Constitutional: denies: chills, fever Eyes: reports: no symptoms reported Ears, Nose, Mouth & Throat: reports: no symptoms reported Cardiovascular: reports: no symptoms reported Respiratory: denies: cough, shortness of breath Gastrointestinal: reports: abdominal pain, diarrhea, nausea, vomiting Genitourinary: denies: dysuria, hematuria Musculoskeletal: reports: no symptoms reported Integumentary: reports: no symptoms reported Neurological: reports: no symptoms reported Psychiatric: reports: no symptoms reported Endocrine: reports: no symptoms reported Hematologic/Lymphatic: reports: no symptoms reported Allergic/Immunologic: reports: no symptoms reported All Other Systems: Reviewed and Negative Past History - Adult - PAST MEDICAL HISTORY-ADULT Review of Records: reports: Nursing Assessment Review, Medications Reviewed Major Childhood Illnesses: reports: denies history Cardiovascular: reports: HTN Respiratory: reports: denies history Gastrointestinal: reports: denies history Obstetrical/Gynecological: reports: denies history Genitourinary: reports: denies history Musculoskeletal: reports: denies history Neurological: reports: denies history Psychiatric: reports: bipolar Endocrine/Immune: reports: denies history Other Conditions: reports: denies history - PRIOR SURGERIES/PROCEDURES Surgical/Procedure History: reports: back/neck (neck sx) - IMMUNIZATION STATUS Childhood Immunizations: See Nurse Assessment Flu Vaccine: See Nurse Assessment - FAMILY HISTORY Family History: reviewed, not pertinent - SOCIAL HISTORY Smoking: cigarettes Provider spent 3-5 mins advising pt. on dangers of tobacco.: Discussed manners to quit use, and f/u contacts for add'l counseling. Substance Use: none/never Alcohol Use Frequency: 5-6 times a week Physical Exam-General - PHYSICAL EXAM-ADULT Initial Vital Signs Reviewed: Yes - CONSTITUTIONAL General Appearance: alert, moderate distress - RESPIRATORY Respiratory: chest non-tender, lungs clear, normal breath sounds - CARDIOVASCULAR Cardiovascular: normal peripheral pulses, regular rate, rhythm, no edema - GASTROINTESTINAL (ABDOMEN) Abdominal Exam: soft, tenderness (RUQ, epigastric), Wayne's sign - MUSCULOSKELETAL Back Exam: no CVA tenderness - SKIN Integumentary: normal color, normal turgor, warm/dry - PSYCHIATRIC Psych/Mental Status: normal mood/affect, normal thought content, normal thought process, oriented x 3 Progress - PLAN OF CARE/RESULTS Progress/Plan/Lab Results: Vital Signs - 8 hr 10/06/17 02:07 Temperature 97.8 F Pulse Rate 82 Respiratory Rate 15 Blood Pressure 200/113 O2 Sat by Pulse Oximetry 98 Orders Category Date Time Status Saline Loc DIRECTED Care 10/06/16 02:19 Active NPO Diet 10/06/16 02:19 Active ALCOHOL BLOOD Stat Lab 10/06/16 02:19 Ordered CBC WITH ELECTRONIC DIFF [HEME] Stat Lab 10/06/16 02:19 Ordered COMPREHENSIVE METABOLIC PANEL [CHEM] Stat Lab 10/06/16 02:19 Ordered LIPASE [CHEM] Stat Lab 10/06/16 02:[address] W/POSS RFLX CULT [URINALYSIS] Stat Lab 10/06/16 02:19 Uncollected 0.9% Sodium Chloride Inj [Ns] 1,000 ml Med 10/06/16 02:19 Active IV 999 mls/hr Acetaminophen [Ofirmev 1000 mg/Isotonic Soln] Med 10/06/16 02:20 Active 1,000 mg in 100 ml IV NOW Ondansetron [Zofran] Med 10/06/16 02:19 Discontinued 8 mg IV NOW ONE Result Diagrams: 10/06/16 02:33 10/06/16 02:33 Departure - Departure Date of Disposition Decision: 10/06/16 Time of Disposition Decision: 03:06 DIAGNOSIS: Pancreatitis Qualifiers: Chronicity: acute Pancreatitis type: unspecified pancreatitis type Acute pancreatitis complication: no infection or necrosis Qualified Code(s): K85.90 - Acute pancreatitis without necrosis or infection, unspecified Disposition: ADMITTED INPATIENT 09 Certified Medical Emergency: Emergent Condition: Fair Referrals and Follow-Ups: Alpesh Fitzpatrick [Primary Care Provider] - - Critical Care Note This patient required my direct & personal management of CC.: No This chart was documented by the indicated scribe, (Emily Farnsworth Scribe) and accurately reflects the services I performed and decisions made by me, Fadi Hernandez MD, as attested by the provider's signature.
[2016-10-06 03:14] LABS: BILIRUBIN URINE NEGATIVE (NEGATIVE); BLOOD URINE TRACE (NEGATIVE); CLARITY CLEAR (CLEAR); COLOR YELLOW; GLUCOSE URINE NEGATIVE (NEGATIVE); LEUKOCYTES URINE NEGATIVE (NEGATIVE); NITRITE URINE NEGATIVE (NEGATIVE); PROTEIN URINE NEGATIVE (NEGATIVE); SP GRAVITY URINE 1.005; UROBILINOGEN URINE NORMAL
[2016-10-06 03:22] LABS: URINE CULTURE PL NEEDED? YES; URINE EPITHELIAL CELLS <10 /HPF (<10); URINE SOURCE CLEAN CATCH; URINE WBC <10 /HPF (<10)
[2016-10-06] MEDS: DILAUDID IV SCH ×8 (05:45→18:31)
--- NOTE | 2016-10-06 10:32 | Diag Imaging Result Doc PS360 ---
US GB < RUQ (LIMITED) - 10/06/2016 INDICATION: pancreatitis TECHNIQUE: Hernandez scale, color Doppler, and duplex evaluation of the abdomen was performed. COMPARISON: CT abdomen 09/19/2016. FINDINGS: The liver appears hyperechoic suggesting diffuse fatty liver infiltration. No focal masses are appreciated. The IVC and aorta appear normal. The pancreas is obscured by bowel gas artifact. The gallbladder is free of stones and sludge has a normal caliber wall. The common bile duct measures 6 mm. The portal vein is patent with hepatopetal flow. The right kidney contains a large simple cyst right upper pole measuring 9.6 x 9.5 x 8.3 cm.. There is no hydronephrosis. IMPRESSION: No cholelithiasis. Large right upper pole renal cyst. Electronically signed by Andressa Clemens 10/06/2016 10:30 AM
[2016-10-06] MEDS: ZOSYN 3.375 GM/NS 3.375 GM/50 ML IVPB IV SCH ×2 (12:39→18:31)
--- NOTE | 2016-10-06 15:38 | HISTORY AND PHYSICAL ---
CHIEF COMPLAINT: Right upper quadrant pain. HISTORY OF PRESENT ILLNESS: This is a 51-year-old female who is well known to our service, having been just discharged from the hospital within the last week for the same. She comes in complaining of a burning-type epigastric/right upper quadrant pain. She describes it as frank or having spasms at times. Food exacerbates it and at times it is spontaneously relieved. She denied any vomiting, diarrhea, constipation, black or bloody vomitus, or black or bloody stools. She was found to have a lipase of 278 with abdominal ultrasound revealing no cholelithiasis, a large right upper pole renal cyst. She was given IV fluids as well as Dilaudid and Toradol in the emergency room. She is being admitted for further evaluation and treatment. PAST MEDICAL HISTORY: Hypertension, bipolar disorder, tobacco use, chronic pain, currently in a pain clinic. PAST SURGICAL HISTORY: Bilateral mastectomy for recurrent infections. SOCIAL HISTORY: She smokes daily. She drinks alcohol daily, at least 4 beers. ALLERGIES: No known drug allergies. HOME MEDICATIONS: Hydrochlorothiazide 25 mg daily. Colace 100 b.i.d. Klonopin 0.5 b.i.d. Norvasc 10 daily. Effexor XR 150 at bedtime. Restoril 15 at bedtime. REVIEW OF SYSTEMS: A 14-point review of systems is discussed with the patient, with pertinent positives stated in the HPI. She denied chest pain, palpitations, dizziness, syncope, cough, fever, chills, PND, orthopnea, vomiting, diarrhea, black or bloody vomitus, black or bloody stools. PHYSICAL EXAMINATION: GENERAL: This is a 51-year-old female who is sitting up in the bed, in no distress. VITAL SIGNS: Blood pressure is 151/90 with a heart rate of 75. Respirations are 18. Temperature is 97.9 degrees oral with oxygen saturations 93% to 95%. CARDIOVASCULAR: Regular rate and rhythm. S1 and S2 appreciated. PULMONARY: Breath sounds are clear, with no increased work of breathing noted. GASTROINTESTINAL: Abdomen is soft. She does have some right upper quadrant and epigastric tenderness, with bowel sounds in all 4 quadrants. MUSCULOSKELETAL: Good range of motion of joints. SKIN: Warm and dry. NEUROLOGIC: She is alert and oriented, with cranial nerves 2-12 grossly intact. DIAGNOSTICS: WBC is 9.4 with a hemoglobin of 14.5, hematocrit 41.7, and platelets of 225,000. Sodium is 133, potassium 3.3, BUN 9, creatinine 0.6, with a glucose of 127. Lipase is 278. Blood alcohol is zero. ASSESSMENT AND PLAN: 1. Recurrent pancreatitis. She will remain n.p.o. We will give IV hydration, pain and nausea control, and trend her lipase. 2. Steatosis of the liver. Aware. 3. Obesity. 4. Hypertension. We will identify and continue her medicines, and continue as appropriate. 5. Bipolar disorder. We will continue her medicines. 6. Tobacco use. We will add a nicotine patch. 7. Alcohol use daily. We will start Librium 25 mg b.i.d. and monitor for withdrawal or delirium tremens. Further treatments pending hospital course. Dictated by CYNTHIA South for Fabrice Torres MD cc: CYNTHIA South MD
[2016-10-06] MEDS ORDERED: RESTORIL PO SCH (21:00)
[2016-10-06] MEDS: KLONOPIN PO SCH (21:13)
[2016-10-06] MEDS: DILAUDID IV PRN (21:20)
[2016-10-07] MEDS: ZOSYN 3.375 GM/NS 3.375 GM/50 ML IVPB IV SCH ×5 (00:10→23:59)
[2016-10-07] MEDS: DILAUDID IV PRN ×6 (00:14→21:04)
[2016-10-07 06:20] LABS: HEMATOCRIT 42.9 % (37.0-47.0); MCH 28.6 PG (27-31); MCHC 32.6 g/dL (33-37); MCV 87.6 FL (81-99); MPV 11.8 FL (7.4-10.4); RBC 4.9 XMIL (4.2-5.4)
[2016-10-07 07:15] LABS: AGAP 12; ALBUMIN 3.8 g/dL (3.5-5.0); ALKALINE PHOSPHATASE 92 U/L (32-104); AMYLASE 65 U/L (20-200); BUN 9 mg/dL (8-22); CALCIUM 9.3 mg/dL (8.8-10.2); CHLORIDE 102 mmol/L (98-107); COSMO 279; GOT 29 U/L (10-30); GPT 18 U/L (10-36); LIPASE 113 U/L (13-60); MAGNESIUM 1.7 mg/dL (1.5-2.7); POTASSIUM 3.8 mmol/L (3.5-5.1); SODIUM 139 mmol/L (136-145); TCO2 26 mmol/L (25-35); TOTAL PROTEIN 7.7 g/dL (6.3-8.3)
--- NOTE | 2016-10-07 08:20 | Diag Imaging Result Doc PS360 ---
EXAM: CHEST-2 VIEWS HISTORY: hypoxia TECHNIQUE: PA and lateral chest COMMENT: There is no evidence of acute cardiac or pulmonary disease. There is been no significant change since 09/19/2016. IMPRESSION: Stable chest. Electronically signed by Kiran Ortega 10/07/2016 8:18 AM
[2016-10-07] MEDS: KLONOPIN PO SCH ×2 (09:33→21:03)
[2016-10-07] MEDS: NORVASC PO SCH (09:33)
[2016-10-07] MEDS ORDERED: RESTORIL PO SCH (10:21)
--- NOTE | 2016-10-07 12:54 | PROGRESS NOTE ---
DATE: 10/07/2016 SUBJECTIVE: The patient notes that her abdominal pain is better. She denies any cough, congestion. Denies any chest pains presently. States overall she is feeling better. She would like to eat. States she did not sleep well last night. OBJECTIVE: Vital Signs: On physical, temp 98, pulse 82, respiratory rate 18, BP 134/77, satting 99% on 1 L. General: Patient is awake, alert. She is currently in no real respiratory distress. Neck: Supple. CV: Regular rate. Chest: Relatively clear. Abdomen: Soft. Extremities: Moves all extremities. Neurologic: No focal changes. Skin: Warm and dry. No rashes. ASSESSMENT: 1. Acute pancreatitis, uncertain etiology. Patient has a known history of alcoholism, although she states she did not drink when she went home. 2. Diabetes type 2. We will continue to hold her metformin as this certainly could be increasing her abdominal pain. Blood sugars have been good so far without it. 3. Hypercalcemia, resolved. 4. Hypertension. Continue Norvasc. 5. Fatty liver. 6. Obesity. 7. Bipolar. 8. Chronic tobacco abuse. PLAN: We will begin advancing diet and will follow. Hopefully home in the next 1-2 days. cc: Fabrice Torres MD
[2016-10-07] MEDS: NORCO-7.5 PO PRN ×2 (17:10→23:59)
[2016-10-08] MEDS: DILAUDID IV PRN (02:33)
[2016-10-08] MEDS: NORCO-7.5 PO PRN ×2 (04:14→08:17)
[2016-10-08 06:31] LABS: HEMATOCRIT 41.5 % (37.0-47.0); HEMOGLOBIN 13.4 g/dL (12.0-16.0); MCH 28.5 PG (27-31); MCHC 32.3 g/dL (33-37); MCV 88.1 FL (81-99); MPV 11.7 FL (7.4-10.4); RBC 4.71 XMIL (4.2-5.4)
[2016-10-08] MEDS: ZOSYN 3.375 GM/NS 3.375 GM/50 ML IVPB IV SCH (06:38)
[2016-10-08 06:42] LABS: HEMOGLOBIN A1C 6.9 % (4.8-6.0)
[2016-10-08 06:43] LABS: AGAP 10; ALBUMIN 3.9 g/dL (3.5-5.0); ALKALINE PHOSPHATASE 89 U/L (32-104); AMYLASE 60 U/L (20-200); BUN 7 mg/dL (8-22); CALCIUM 9.3 mg/dL (8.8-10.2); CHLORIDE 97 mmol/L (98-107); COSMO 272; GOT 29 U/L (10-30); GPT 19 U/L (10-36); HDL 35 mg/dL (45-65); LDL 131 mg/dL; LIPASE 98 U/L (13-60); MAGNESIUM 1.9 mg/dL (1.5-2.7); POTASSIUM 3.6 mmol/L (3.5-5.1); SODIUM 136 mmol/L (136-145); TCO2 29 mmol/L (25-35); TOTAL PROTEIN 7.7 g/dL (6.3-8.3); TRIGLYCERIDES 102 mg/dL (35-135); VLDL 20 mg/dL
[2016-10-08 07:58] VITALS: BP 182/95
[2016-10-08] MEDS: KLONOPIN PO SCH (08:17)
[2016-10-08] MEDS: NORVASC PO SCH (08:18)
[2016-10-08] MEDS ORDERED: PERCOCET-10 PO PRN (09:58)
[2016-10-08] MEDS ORDERED: AUGMENTIN PO SCH (10:00)
[2016-10-08] MEDS ORDERED: EFFEXOR XR PO SCH (21:00)
[2016-10-08] MEDS ORDERED: COLACE PO SCH (21:00)
--- NOTE | 2016-10-09 05:35 | DISCHARGE SUMMARY ---
ADMISSION DATE: 10/06/2016 DISCHARGE DATE: 10/08/2016 DIAGNOSES: 1. Acute pancreatitis. 2. Diabetes type 2. 3. Hypercalcemia, resolved. 4. Hypertension. 5. Fatty liver. 6. Obesity. 7. Bipolar. 8. Chronic tobacco use. 9. Alcohol use. DIAGNOSTICS: 1. Abdominal ultrasound revealed no cholelithiasis, with a large right upper pole renal cyst. 2. PA and lateral chest revealed a stable chest with no evidence of acute cardiac or pulmonary disease. 3. Urine culture revealed no pathogenic growth. HOSPITAL COURSE: Ms. Bah presented to the hospital complaining of right upper quadrant pain. She was found to have a lipase of 278, with an ultrasound revealing no cholelithiasis. She was admitted. Given IV hydration as well as pain and nausea control. We did continue her home medications as appropriate. Librium was given. She was monitored for alcohol withdrawal or DTs, which she had none. The patient was discharged from the hospital for pancreatitis on the . She denied drinking alcohol after discharge. She was cautioned once again about the need to stop alcohol use as this pancreatitis will continue. We also stopped the metformin as this could be a cause. We did add lisinopril for blood pressure control. Ms. Bah, over the last 12 hours, felt much better. She tolerated a GI soft diet as well as solid food last night without any abdominal pain or nausea. DISCHARGE PHYSICAL EXAMINATION: Cardiovascular: Regular rate and rhythm. S1 and S2 are appreciated. Pulmonary: Breath sounds are clear with no increased work of breathing noted. Gastrointestinal: Abdomen is soft, nontender, nondistended with bowel sounds in all 4 quadrants. Extremities: No clubbing, cyanosis, or edema. Calves nontender. Pulses are palpable x4. DISCHARGE MEDICATIONS: 1. Prilosec 40 mg 1 twice a day. 2. Lisinopril 10 mg p.o. daily. 3. Effexor XR 75 mg daily. 4. Klonopin 0.5 p.o. b.i.d. 5. Hydrochlorothiazide 25 mg daily. 6. Percocet 10/325 t.i.d. p.r.n. 7. Restoril 15 at bedtime. 8. Augmentin 875 one p.o. b.i.d. for 5 days. FOLLOWUP: She needs to follow up with her primary care provider in 1-2 weeks. At this time, she can discuss an alternative medication for metformin. She is being discharged home in stable condition with family members. TIME SPENT: This is a greater than a 30 minute discharge. Once again, the patient was cautioned per myself as well as Dr. Torres on the importance of stopping alcohol. She did voice understanding. Dictated by CYNTHIA South for Fabrice Torres MD cc: CYNTHIA South MD
[2016-10-09] MEDS ORDERED: HYDROCHLOROTHIAZIDE PO SCH (09:00)
== END 2016-10-08 11:30 | disposition home or self-care (01) ==
LOC: P.ED 02:04 → P.MEDSURG 03:42
PROVIDERS: ATTEND Family Medicine